=== PATIENT | female | born 1985 | race African-American/Black ===

== ENCOUNTER 2025-04-10 21:48 | Emergency (ER) | payer SELFPAY ==
[~2025-04-10] VITALS: Ht 167.6 cm; Wt 109.0 kg
[2025-04-10 22:10] VITALS: O2SAT 97
[2025-04-10] MEDS: SODIUM CHLORIDE 0.9% 1,000 ML IV ONE (23:04)
[2025-04-10 23:11] LABS: CLARITY URINE CLOUDY (CLEAR); COLOR URINE YELLOW (YELLOW); GLUCOSE URINE NEGATIVE (NEGATIVE); KETONES URINE NEGATIVE (NEGATIVE); LEUKOCYTE ESTERASE URINE 3+ (NEGATIVE); NITRITE URINE NEGATIVE (NEGATIVE); OCCULT BLOOD URINE NEGATIVE (NEGATIVE); PROTEIN URINE NEGATIVE (NEGATIVE); SPECIFIC GRAVITY URINE 1.013 (1.005-1.030); UROBILINOGEN URINE 0.2 E.U./dL (0.2-1.0)
[2025-04-10 23:14] LABS: *AMPHETAMINES SCREEN URINE PRESUMPTIVE POSITIVE (NEGATIVE); *BARBITURATES SCREEN URINE NEGATIVE (NEGATIVE); *BENZODIAZEPINES SCREEN URINE NEGATIVE (NEGATIVE); *COCAINE SCREEN URINE NEGATIVE (NEGATIVE); CANNABINOID URINE SCREEN PRESUMPTIVE POSITIVE (NEGATIVE); ECSTASY MDMA SCREEN URINE CONF.TEST INDICATED (NEGATIVE); METHADONE URINE SCREEN NEGATIVE (NEGATIVE); OPIATES URINE SCREEN NEGATIVE (NEGATIVE); PHENCYCLIDINE URINE SCREEN NEGATIVE (NEGATIVE)
[2025-04-10 23:25] LABS: BACTERIA URINE 3+; RBC URINE 0-2 /hpf (0-2); SQUAMOUS EPITHELIAL CELL URINE 3+ /lpf (RARE/1+)
[2025-04-10 23:26] LABS: WBC URINE 25-50 /hpf (0-2)
[2025-04-10 23:55] LABS: BASOPHILS % 0.5 % (0.0-2.0); HEMATOCRIT. 37.3 % (36.0-48.0); HEMOGLOBIN. 12.3 g/dL (12.0-16.0); LYMPHOCYTES % 33.2 % (20.0-50.0); MEAN CORPUSCULAR HEMOGLOBIN 30.4 pg (28.0-32.0); MEAN CORPUSCULAR HGB CONC 32.9 g/dL (31.0-37.0); MEAN CORPUSCULAR VOLUME 92.3 fL (81.0-99.0); MEAN PLATELET VOLUME 9.3 fl (7.4-10.4); MONOCYTES % 7.5 % (2.0-8.0); NEUTROPHILS % 55.8 % (40.0-76.0); PLATELET 268 x1000/uL (130-400); RED BLOOD CELL COUNT 4.04 mill/uL (4.2-5.4); RED CELL DISTRIBUTION WIDTH 15.1 % (11.6-14.6); WHITE BLOOD COUNT 6.3 x1000/uL (4.5-11.0)
[2025-04-10 23:57] LABS: CARBON DIOXIDE 27 mEq/L (21-32); CHLORIDE 105 mEq/L (98-107); POTASSIUM 3.4 mEq/L (3.5-5.1); SODIUM 139 mEq/L (136-145)
[2025-04-10 23:58] LABS: CALCIUM 8.8 mg/dL (8.7-10.4); PROTHROMBIN TIME 10.9 sec (9.6-11.0)
[2025-04-11 00:02] LABS: CREATININE 1.2 mg/dL (0.6-1.0)
[2025-04-11 00:03] LABS: ETHANOL BLOOD < 10 mg/dL (<10); GLUCOSE 121 mg/dL (70-105); UREA NITROGEN BLOOD 9 mg/dL (9-23)
[2025-04-11 00:04] LABS: ACETAMINOPHEN < 2 ug/mL (10-30); ALANINE AMINOTRANSFERASE 16 IU/L (10-49); ALBUMIN 4.1 g/dL (3.2-4.8); ASPARTATE AMINOTRANSFERASE 19 IU/L (<34)
[2025-04-11 00:05] LABS: BILIRUBIN DIRECT 0.2 mg/dL (<=3.0); BILIRUBIN TOTAL 0.6 mg/dL (0.1-1.0); PROTEIN TOTAL 7.2 g/dL (6.0-8.3)
[2025-04-11] MEDS ORDERED: HYDRALAZINE 20MG/ML VIAL IV ONE (00:15)
[2025-04-11 00:19] LABS: HCG SCREEN NEGATIVE
[2025-04-11] MEDS ORDERED: AMLODIPINE 5MG TABLET PO SCH (01:00)
[2025-04-11 01:27] VITALS: TEMP 36.8
[2025-04-11] MEDS: LORAZEPAM 1MG TABLET PO SCH (01:54)
[2025-04-11] MEDS: CEPHALEXIN 250MG CAPSULE PO SCH (01:54)
[2025-04-11] MEDS: OLANZAPINE 5MG TABLET PO SCH (01:54)
[2025-04-11 02:00] VITALS: BP 110/61; PULSE 74; RESP 20; O2SAT 100
[2025-04-11] MEDS ORDERED: CEPH500T MT (02:10)
== END 2025-04-11 02:19 | disposition home or self-care (01) ==
LOC: ER 21:48
DX: R44.1 Visual hallucinations (principal); F15.10 Other stimulant abuse, uncomplicated; N39.0 Urinary tract infection, site not specified; Z20.822 Contact with and (suspected) exposure to COVID-19
CPT/HCPCS: 80076; 80305; 80048; 81003; 80307; 80329; 80320; 84703; 83690; 85025; 85610; 87086; 36415; 96360; 99284; 87426; 74176; J7030; G0480

== ENCOUNTER 2025-07-01 11:49 | Emergency (ER) | payer MEDICAID ==
[~2025-07-01] VITALS: Ht 170.2 cm; Wt 125.0 kg
[~2025-07-01 11:49] MED LIST: CEPH500T MT
[2025-07-01 12:11] VITALS: O2SAT 100
[2025-07-01 13:34] LABS: BASOPHILS % 0.5 % (0.0-2.0); EOSINOPHILS % 3.7 % (0.0-5.0); HEMATOCRIT. 38.1 % (36.0-48.0); HEMOGLOBIN. 12.9 g/dL (12.0-16.0); LYMPHOCYTES % 31.6 % (20.0-50.0); MEAN PLATELET VOLUME 9.1 fl (7.4-10.4); MONOCYTES % 4.4 % (2.0-8.0); NEUTROPHILS % 59.8 % (40.0-76.0); PLATELET 300 x1000/uL (130-400); RED BLOOD CELL COUNT 4.14 mill/uL (4.2-5.4); RED CELL DISTRIBUTION WIDTH 14.9 % (11.6-14.6)
[2025-07-01 13:48] LABS: CREATININE 1.0 mg/dL (0.6-1.0); ETHANOL BLOOD < 10 mg/dL (<10); UREA NITROGEN BLOOD 9 mg/dL (9-23)
[2025-07-01 14:12] LABS: HCG SCREEN NEGATIVE
[2025-07-01 17:15] LABS: *AMPHETAMINES SCREEN URINE PRESUMPTIVE POSITIVE (NEGATIVE); *BARBITURATES SCREEN URINE NEGATIVE (NEGATIVE); *BENZODIAZEPINES SCREEN URINE NEGATIVE (NEGATIVE); *COCAINE SCREEN URINE NEGATIVE (NEGATIVE)
[2025-07-01 17:16] LABS: CANNABINOID URINE SCREEN PRESUMPTIVE POSITIVE (NEGATIVE); ECSTASY MDMA SCREEN URINE NEGATIVE (NEGATIVE); METHADONE URINE SCREEN NEGATIVE (NEGATIVE); OPIATES URINE SCREEN NEGATIVE (NEGATIVE); PHENCYCLIDINE URINE SCREEN NEGATIVE (NEGATIVE)
[2025-07-02 18:29] VITALS: BP 118/75; PULSE 74; RESP 18; TEMP 36.8; O2SAT 97
== END 2025-07-02 18:45 ==
LOC: ER 11:49
DX: R44.0 Auditory hallucinations (principal); F31.9 Bipolar disorder, unspecified; Z88.0 Allergy status to penicillin; Z86.59 Personal history of other mental and behavioral disorders; Z20.822 Contact with and (suspected) exposure to COVID-19
CPT/HCPCS: 36415; 80048; 80305; 80307; 80320; 80329; 84703; 85025; 87426; 99285; G0480